=== PATIENT | female | born 1970 | race African-American/Black ===

== ENCOUNTER 2016-04-25 08:29 | Emergency (ER) | payer MEDICAID ==
[~2016-04-25] VITALS: Ht 165.1 cm; Wt 90.0 kg
[~2016-04-25 08:29] MED LIST: FERRF325 PO; FLAG500T PO; LEVO125T3 PO; LISI-366 PO; METO25 PO
[2016-04-25 08:31] VITALS: BP 169/95; PULSE 106; RESP 17; TEMP 99.1; O2SAT 99
[2016-04-25 09:10] LABS: BACTERIA, URINE FEW /hpf; BLOOD, URINE MOD (NEG); COMMENT (UR) CULTURE INDICATED; CULTURE IF INDICATED CULTURE INDICATED; GLUCOSE,URINE NEG (NEG); KETONE, URINE TRACE mg/dL (NEG); MUCUS URINE FEW /lpf (OCC); NITRITE,URINE NEG (NEG); SQUAMOUS EPITHELIAL CELL URINE 71 /hpf (0-5); URINE COLOR YELLOW (YELLW/STRAW)
[2016-04-25] MEDS ORDERED: LIDOCAINE HCL 1% 50 ML VIAL XX ONE (09:30)
[2016-04-25] MEDS ORDERED: CEPH-460 PO (09:31)
--- NOTE | 2016-04-25 09:32 | PD ---
HPI Chief Complaint: Cold / Flu Symptoms Time Seen by Provider: 09:26 Travel History International Travel<30 days: No Contact w/Intl Traveler<30days: No Traveled to known affect area: No History of Present Illness HPI 46-year-old female presents to the emergency department for evaluation of 2 separate issues. First, the patient states she has had urinary symptoms for approximately one week. She reports urinary frequency and urgency and mild dysuria. She reports low back pain. Patient states she has tried over-the- counter homeopathic remedies without improvement. Patient also reports flulike symptoms for 4 days. She reports cough, congestion, low-grade fevers (patient states temp max 99.4) . She denies any abdominal pain. No vomiting. She has a history of hypertension and takes metoprolol. She denies any chance of . No other complaints. PFSH Past Medical History Diminished Hearing: No Sickle Cell Disease: Yes (TRAIT) Tetanus Vaccination: > 5 Years ?: Not LMP: 04/20/16 : 4 Para: 1 Miscarriage: 2 : 0 Past Surgical History Gynecologic Surgery: Yes (D&C) Social History Alcohol Use: Yes (RARELY) Tobacco Use: No Substance Use: No Allergies-Medications (Allergen,Severity, Reaction): Coded Allergies: Codeine (Verified Allergy, Intermediate, NAUSEA, VOMITTING, HIVES, 04/25/16 ) Reported Meds & Prescriptions Reported Meds & Active Scripts Active Flagyl (Metronidazole) 500 Mg Tab 500 Mg PO BID Reported Hemocyte (Ferrous Fumarate) 324 Mg Tab 1 Tab PO BID Lisinopril 40 mg (Lisinopril) 40 Mg Tab 1 Tab PO DAILY Levothyroxine 125 mcg (Levothyroxine Sodium) 125 Mcg Tab 125 Mcg PO DAILY Metoprolol Tartrate 25 mg (Metoprolol Tartrate) 25 Mg Tab 25 Mg PO DAILY Review of Systems Except as stated in HPI: all other systems reviewed are Neg Physical Exam Narrative GENERAL: Well-developed well-nourished female patient, ambulatory. Afebrile. SKIN: Warm and dry. HEAD: Normocephalic. Atraumatic. ENT: Mucosa pink and moist. No erythema or exudates. No uvular edema. No uvular , palatal, or tonsillar deviation. Airway patent. Nasal turbinates appear normal without nasal blood, purulent drainage or septal hematoma. Bilateral tympanic membranes are clear without erythema or perforation. EYES: No scleral icterus. No injection or drainage. NECK: Supple, trachea midline. No JVD or lymphadenopathy. CARDIOVASCULAR: Regular rate and rhythm without murmurs, gallops, or rubs. RESPIRATORY: Breath sounds equal bilaterally. No accessory muscle use. Lungs sounds are clear to auscultation. GASTROINTESTINAL: Abdomen soft, non-tender, nondistended. MUSCULOSKELETAL: No cyanosis, or edema. BACK: Nontender without obvious deformity. No CVA tenderness. Data Data Last Documented VS Vital Signs Date Time Temp Pulse Resp B/P Pulse Ox O2 Delivery O2 Flow Rate FiO2 04/25/16 08:31 99.1 106 17 169/95 99 Orders Urinalysis - C+S If Indicated (04/25/16 08:35) Urine Culture (04/25/16 07:35) Ceftriaxone Inj (Rocephin Inj) (04/25/16 09:30) Labs Laboratory Tests Test 04/25/16 07:35 Urine Color YELLOW Urine Turbidity CLOUDY Urine pH 6.0 Urine Specific [place] 1.016 Urine Protein 30 mg/dL Urine Glucose (UA) NEG mg/dL Urine Ketones TRACE mg/dL Urine Occult Blood MOD Urine Nitrite NEG Urine Bilirubin NEG Urine Urobilinogen LESS THAN 2.0 MG/DL Urine Leukocyte Esterase LARGE Urine RBC 21 /hpf Urine WBC /hpf Urine WBC Clumps FEW Urine Squamous Epithelial 71 /hpf Cells Urine Bacteria FEW /hpf Urine Mucus FEW /lpf Microscopic Urinalysis Comment CULTURE INDICATED MDM Medical Decision Making Medical Screen Exam Complete: Yes Emergency Medical Condition: Yes Medical Record Reviewed: Yes Differential Diagnosis Urinary tract infection versus pyelonephritis versus viral URI versus influenza Narrative Course 46-year-old female presents to the emergency department for evaluation of urinary symptoms for 1 week and cold symptoms for 4 days. Lungs sounds are clear to auscultation. Upper respiratory symptoms are most consistent with a viral URI. Patient has no CVA tenderness however, urine shows moderate occult blood, large leukocyte esterase, 21 RBC, innumerable WBC, few WBC clumps. However, there are 70 squamous epithelial cells. Due to symptoms of UTI and UA results, the patient is treated with Rocephin 1 g IM. She'll be discharged with a prescription for Keflex. Patient is to return for any acute worsening of symptoms. She is agreeable to this plan. Diagnosis Primary Impression: Urinary tract infection Qualified Code: N30.01 - Acute cystitis with hematuria Additional Impression: Viral URI with cough Referrals: Primary Care Physician call for appointment Patient Instructions: General Instructions, Urinary Tract Infection in Women ( ED) Departure Forms: Tests/Procedures, Work Release Enter return to work date: Apr 27, 2016 Additional Instructions: Drink plenty of fluids. Take antibiotic as directed until gone. Follow-up with your primary care physician. Return to the emergency department for any acute worsening of symptoms. Med/Other Pt SpecificInfo: Prescription(s) given Scripts Cephalexin (Keflex)500 Mg [id number] Mg PO Q12H 7 Days Ref 0 Prov:Alexandra Nayak 04/25/16 Disposition: DISCHARGE HOME Condition: Stable Alexandra Nayak Apr 25, 2016 09:32
[2016-06-17] MEDS ORDERED: METO25TA3 PO (09:27)
[2016-06-17] MEDS ORDERED: LEVO125T4 PO (09:27)
== END 2016-04-25 10:17 | disposition home or self-care (01) ==
LOC: NEPB 08:29
DX: N39.0 Urinary tract infection, site not specified (principal); J06.9 Acute upper respiratory infection, unspecified; B96.20 Unspecified Escherichia coli [E. coli] as the cause of diseases classified elsewhere; I10 Essential (primary) hypertension; D57.3 Sickle-cell trait
CPT/HCPCS: 81001; 87077; 87086; 87186; 96372; 99283; J0696

== ENCOUNTER 2017-11-11 20:06 | Observation (INO) ==
[2017-11-11] MEDS ORDERED: Sod Chloride 0.9% Inj 1,000 ML IV.SIG ONE (20:48)
--- NOTE | 2017-11-11 21:03 | ED ---
HPI General Chief Complaint: Headache Stated Complaint: Migraine Time Seen by Provider: 11/11/17 20:38 Source: patient Mode of arrival: ambulatory Limitations: no limitations History of Present Illness HPI Narrative: 47-year-old female that presents to the ED for evaluation of headache. Per patient she does not really suffer from migraine headaches and she has had headaches in the past but not as severe as this 1. Per patient she is dealing with high blood pressure and is following with her doctor who recently increase her metoprolol as well as her losartan. She currently takes 50 mg of metoprolol twice a day as well as losartan 100 mg once a day. Per patient her blood pressure continues to be high and for the past 2 days she has been having severe headache. Per patient comes and goes. She has been trying everything [id number] with no relief. She feels nauseous and has some blurry vision. Per patient the light makes the headache worse. No history of stroke or CVA. No history of ACS. No chest pain or shortness of breath. No urinary or bowel movement issues. No abdominal pain. No kidney disease. She states compliance with her blood pressure medications. Headache per patient is 8 out of 10 and feels like pressure on the back of her neck and head. No trauma or injury. No blood thinner use. No numbness, tingling, weakness. Related Data Home Medications Medication Instructions Recorded Confirmed losartan 100 mg PO DAILY 11/11/17 11/11/17 metoprolol tartrate 50 mg PO BID 11/11/17 11/11/17 Allergies Allergy/AdvReac Type Severity Reaction Status Date / Time codeine Allergy Intermediate NAUSEA, Unverified 10/25/16 17:09 VOMITTING, HIVES Review of Systems ROS: all other systems reviewed are negative PMFSH History History Provided By: Patient Medical History Medical History Hypertension (Acute) Hypothyroid (Acute) Social History Social History Substance History: No History of Abuse Second Hand Smoke Exposure: No Smoking Status: Never smoker How Often Do You Have a Drink Containing Alcohol: Monthly or less Recent Travel in [facility] within the Last 8 Weeks: No Recent Out of Country Travel within the Last 8 Weeks: No Exam Narrative Exam Narrative: GENERAL: Well appearing. SKIN: Focused skin assessment warm/dry. HEAD: Atraumatic. Normocephalic. EYES: Pupils equal and round. No scleral icterus. No injection or drainage. ENT: No nasal bleeding or discharge. Mucous membranes pink and moist. Tongue is midline. No uvula deviation. NECK: Trachea midline. No JVD. CARDIOVASCULAR: Regular rate and rhythm. No murmur appreciated. RESPIRATORY: No accessory muscle use. Clear to auscultation. Breath sounds equal bilaterally. GASTROINTESTINAL: Abdomen soft, non-tender, nondistended. Hepatic and splenic margins not palpable. MUSCULOSKELETAL: No obvious deformities. No clubbing. No cyanosis. No edema. Full range of motion of the upper and lower extremities bilaterally. 2+ pulses bilaterally. NEUROLOGICAL: Awake and alert. No obvious cranial nerve deficits. Motor grossly within normal limits. Normal speech. PSYCHIATRIC: Appropriate mood and affect; insight and judgment normal. Course Initial Documented Vital Signs Temperature 99.6 F 11/11/17 20:30 Pulse Rate 103 H 11/11/17 20:30 Respiratory Rate 20 11/11/17 20:30 Blood Pressure 207/93 H 11/11/17 20:30 Pulse Oximetry 98 11/11/17 20:30 Last Documented Vital Signs Temperature 99.1 F 11/12/17 07:40 Pulse Rate 75 11/12/17 09:42 Respiratory Rate 16 11/12/17 07:40 Blood Pressure 174/81 H 11/12/17 07:41 Pulse Oximetry 99 11/12/17 07:40 Medical Decision Making KEVIN Attestation KEVIN supervised visit: Yes Attestation: I, Dr. Espino, have reviewed the advance practice practitioner's documentation and am in agreement, met with the patient face to face, made the diagnosis, and the medical decision making was done by me. *My assessment and Findings: Patient will be admitted to the hospital for workup and treatment of hypertensive urgency. MDM Narrative Medical decision making narrative: 47-year-old female that presents to the ED for evaluation of hypertension headache. Patient was properly examined and was found to have signs and symptoms concerning for hypertensive urgency. Patient was given labetalol IV at my attendings recommendations. Patient was given a cocktail of medications to help with pain including Benadryl Compazine and Toradol. Labs and imaging order. Labs and imaging still pending when I wrote this note. Case was signed out to my attending Dr. Robertson who will likely admit patient for hypertensive urgency. Medical Screen Exam Complete: Yes Emergency Medical Condition: Yes Differential Diagnosis Differential Diagnosis: CVA versus kidney failure versus hypertensive emergency versus hypertensive urgency versus migraine headache versus tension headache Medical Records Medical records reviewed: Yes I reviewed the patient's medical records. Lab Data Lab results reviewed: Yes I reviewed the patient's lab results. Result diagrams: 11/12/17 04:26 11/12/17 04:26 Lab Results 11/11/17 11/11/17 11/11/17 Range/Units 21:05 21:05 21:05 WBC 8.4 (4.0-11.0) th/mm3 RBC 4.18 (4.00-5.30) mil/mm3 Hgb 12.4 (11.6-15.3) gm/dL Hct 36.8 (35.0-46.0) % MCV 88.1 (80.0-100.0) fL MCH 29.6 (27.0-34.0) pg MCHC 33.6 (32.0-36.0) % RDW 18.7 H (11.6-17.2) % Plt Count 164 (150-450) th/mm3 MPV 9.6 (7.0-11.0) fL Neut % (Auto) 69.2 (16.0-70.0) % Lymph % (Auto) 19.2 (9.0-44.0) % [place] % (Auto) 9.9 H (0.0-8.0) % Eos % (Auto) 1.2 (0.0-4.0) % Baso % (Auto) 0.5 (0.0-2.0) % Neut # (Auto) 5.8 (1.8-7.7) th/mm3 Lymph # (Auto) 1.6 (1.0-4.8) th/mm3 [place] # (Auto) 0.8 (0.0-0.9) th/mm3 Eos # (Auto) 0.1 (0.0-0.4) th/mm3 Baso # (Auto) 0.0 (0.0-0.2) th/mm3 WBC Differential . Differential Comment Auto diff final Sodium 141 (136-145) meq/L Potassium 3.6 (3.5-5.1) meq/L Chloride 109 H (98-107) meq/L Carbon Dioxide 25.1 (21.0-32.0) meq/L Anion Gap 7 (5-15) meq/L BUN 9 (7-18) mg/dL Creatinine 1.13 H (0.50-1.00) mg/dL Estimated GFR 62 L (>89) mL/min Random Glucose 94 (74-106) mg/dL Calcium 8.8 (8.5-10.1) mg/dL Total Bilirubin (0.2-1.0) mg/dL AST (15-37) U/L ALT (10-53) U/L Alkaline Phosphatase (45-117) U/L Total Creatine Kinase 71 (26-192) U/L Troponin I Less than 0.02 L (0.02-0.05) ng/mL Total Protein (6.4-8.2) g/dL Albumin (3.4-5.0) g/dL TSH (0.358-3.740) uIU/mL 11/12/17 11/12/17 Range/Units 04:26 04:26 WBC 7.0 (4.0-11.0) th/mm3 RBC 3.86 L (4.00-5.30) mil/mm3 Hgb 11.5 L (11.6-15.3) gm/dL Hct 34.4 L (35.0-46.0) % MCV 89.2 (80.0-100.0) fL MCH 29.9 (27.0-34.0) pg MCHC 33.5 (32.0-36.0) % RDW 18.9 H (11.6-17.2) % Plt Count 141 L (150-450) th/mm3 MPV 9.9 (7.0-11.0) fL Neut % (Auto) 62.0 (16.0-70.0) % Lymph % (Auto) 25.3 (9.0-44.0) % [place] % (Auto) 10.9 H (0.0-8.0) % Eos % (Auto) 1.4 (0.0-4.0) % Baso % (Auto) 0.4 (0.0-2.0) % Neut # (Auto) 4.3 (1.8-7.7) th/mm3 Lymph # (Auto) 1.8 (1.0-4.8) th/mm3 [place] # (Auto) 0.8 (0.0-0.9) th/mm3 Eos # (Auto) 0.1 (0.0-0.4) th/mm3 Baso # (Auto) 0.0 (0.0-0.2) th/mm3 WBC Differential . Differential Comment Auto diff final Sodium 145 (136-145) meq/L Potassium 3.7 (3.5-5.1) meq/L Chloride 111 H (98-107) meq/L Carbon Dioxide 21.9 (21.0-32.0) meq/L Anion Gap 12 (5-15) meq/L BUN 7 (7-18) mg/dL Creatinine 1.02 H (0.50-1.00) mg/dL Estimated GFR 70 L (>89) mL/min Random Glucose 88 (74-106) mg/dL Calcium 8.1 L (8.5-10.1) mg/dL Total Bilirubin 0.3 (0.2-1.0) mg/dL AST 12 L (15-37) U/L ALT 14 (10-53) U/L Alkaline Phosphatase 61 (45-117) U/L Total Creatine Kinase (26-192) U/L Troponin I (0.02-0.05) ng/mL Total Protein 6.7 (6.4-8.2) g/dL Albumin 3.1 L (3.4-5.0) g/dL TSH 13.000 H (0.358-3.740) uIU/mL Imaging Data Attestation: I personally reviewed and interpreted this imaging study as follows : Radiologist's impression: Head CT 11/11/17 20:48 CONCLUSION: Unremarkable study. . ECG Data EKG Prior to Arrival: No Attestation: I personally reviewed and interpreted this ECG as follows: Interpretation: EKG at 2326: NSR at 81bpm, qt/qtc: 383/420, nonspecific t wave changes Discharge Plan Discharge Disposition Patient Disposition: 30 Still Patient Discharge Condition Condition: Stable Discharge Details Diagnosis: Hypertensive urgency Physicians Team ED Provider: Michelle Espino ED Midlevel Provider: Gibson Baptiste Primary Care Provider: UNKNOWN, Attending Provider: Codey Estrada Other Providers: [facility],Insurance Status ED Status: Left Department Discharge Information Discharge Date/Time: 11/12/17 03:35
[2017-11-11] MEDS ORDERED: Labetalol HCl Inj 100 MG/20 ML Vial IV.PUSH ONE (21:04)
[2017-11-11 21:14] LABS: Baso % (Auto) 0.5 % (0.0-2.0); Eos # (Auto) 0.1 th/mm3 (0.0-0.4); Eos % (Auto) 1.2 % (0.0-4.0); Hematocrit 36.8 % (35.0-46.0); Hemoglobin 12.4 gm/dL (11.6-15.3); Lymph # (Auto) 1.6 th/mm3 (1.0-4.8); Lymph % (Auto) 19.2 % (9.0-44.0); Mean Corpuscular HGB Conc 33.6 % (32.0-36.0); Mean Corpuscular Hemoglobin 29.6 pg (27.0-34.0); Mean Corpuscular Volume 88.1 fL (80.0-100.0); Mean Platelet Volume 9.6 fL (7.0-11.0); Mono # (Auto) 0.8 th/mm3 (0.0-0.9); Mono % (Auto) 9.9 % (0.0-8.0); Neut # (Auto) 5.8 th/mm3 (1.8-7.7); Neut % (Auto) 69.2 % (16.0-70.0); Platelet Count 164 th/mm3 (150-450); Red Blood Count 4.18 mil/mm3 (4.00-5.30); Red Cell Distribution Width 18.7 % (11.6-17.2); White Blood Count 8.4 th/mm3 (4.0-11.0)
[2017-11-11 21:33] LABS: Calcium 8.8 mg/dL (8.5-10.1); Carbon Dioxide 25.1 meq/L (21.0-32.0); Potassium 3.6 meq/L (3.5-5.1)
[2017-11-11 21:50] LABS: Creatine Kinase 71 U/L (26-192)
--- NOTE | 2017-11-11 21:54 | CT ---
EXAM DATE: 11/11/2017 9:46 PM EDT AGE/SEX: 47 years / Female INDICATIONS: Headaches. CLINICAL DATA: This is the patient's initial encounter. Patient reports that signs and symptoms have been present for 1 day and indicates a pain score of 8/10. MEDICAL/SURGICAL HISTORY: Hypertension. None. RADIATION DOSE: 33.67 CTDI (mGy) COMPARISON: No prior exams available for comparison. TECHNIQUE: CT of the head without contrast. Using automated exposure control and adjustment of the mA and/or kV according to patient size, radiation dose was kept as low as reasonably achievable to ob tain optimal diagnostic quality images. DICOM format image data is available electronically for revi ew and comparison. FINDINGS: There is no evidence for intracranial hemorrhage, mass effect, mass lesions, edema, or extra-axial fl uid collections. The visualized bony structures appear intact. The ventricles are normal size for t he patient's age. There are no signs of acute infarction for technique. CONCLUSION: Unremarkable study. . Electronically signed by: Darryl Drake MD 11/11/2017 9:53 PM EDT
[2017-11-11] MEDS ORDERED: Ketorolac Inj 30 MG/ML (IVP) Vial IV.PUSH ONE (22:02)
[2017-11-11] MEDS ORDERED: Sodium Chlor 0.9% Inj 500 ML IV.SIG SCH (23:45)
[2017-11-11] MEDS ORDERED: Bisacodyl 10 MG Supp RECTAL PRN (23:45)
--- NOTE | 2017-11-11 23:46 | P.HPIM ---
History of Present Illness Primary Care Physician: UNKNOWN History of Present Illness: This is a 47-year-old female with a PMH of HTN and Hypothyroidism who presented to the ER with complaints of severe headache and elevated blood pressure. States she's had very difficult to control blood pressure x1 year, follows regularly w/ PCP, recent increase of medications 2wks ago from Metoprolol 25mg bid to 50mg bid and Losartan 50mg qd to 100mg qd, however no significant improvement in blood pressure. Today, pt w/ severe frontal headache, photophobia and nausea. No h/o migraine. On arrival, BP 207/93, HR 103, O2 sat 98% on RA, Temp 99.6. S/p Clonidine 0.1mg PO and Labetalol 10mg IV x1 in ER w/ BP now 173/86. Persistent headache, severe, 10/10, non-radiating. CT Head w/ no acute findings. - Diagnosis (1) HTN (hypertension) (2) Headache (3) Renal insufficiency Review of Systems PAST FAMILY HISTORY: Reviewed. No h/o DM or CAD All other systems reviewed negative except as stated in HPI PMFSH - History History Provided By: Patient - Medical History Medical History: Medical History (Last Reviewed 11/11/17 @ 21:03 by DONALD Son) Hypertension Hypothyroid - Travel History Recent Travel in the [place] Within the Last 8 Weeks: No Recent Travel Out of the Country Within the Last 8 Weeks: No Medications and Allergies Allergies Allergy/AdvReac Type Severity Reaction Status Date / Time codeine Allergy Intermediate NAUSEA, Unverified 10/25/16 17:09 VOMITTING, HIVES Home Medications Medication Instructions Recorded Confirmed Type losartan 100 mg PO DAILY 11/11/17 11/11/17 History metoprolol tartrate 50 mg PO BID 11/11/17 11/11/17 History Exam Vital signs: Vital Signs 11/11/17 20:30 11/11/17 21:16 11/11/17 22:01 Temperature 99.6 F Pulse Rate 103 H 105 H 84 Respiratory Rate 20 20 18 Blood Pressure 207/93 H 192/102 H 173/86 H Pulse Oximetry 98 99 98 Intake & Output 11/11/17 11/11/17 11/12/17 06:59 18:59 06:59 Weight 94.801 kg Narrative: PE: GENERAL: Pleasant young black female, +headache, eyes closed, speaking softly, lights off. Daughter at bedside. SKIN: Focused skin assessment warm and dry. HEENT: PERRLA, EOMI. No scleral icterus or conjunctival pallor. No lid lag or facial droop. CARDIOVASCULAR: Regular rate and rhythm. No obvious murmurs to auscultation. No chest tenderness to palpation. RESPIRATORY: No obvious rhonchi or wheezing. Clear to auscultation. Breath sounds equal bilaterally. GASTROINTESTINAL: Abdomen soft, non-tender, nondistended. BS normal. MUSCULOSKELETAL: Extremities without clubbing, cyanosis, or edema. No obvious deformities. NEUROLOGICAL: Awake, alert and oriented x4. No focal neurologic deficits. Moving both upper and lower extremities spontaneously. PSYCHIATRIC: Appropriate mood and affect. Insight and judgment normal. Results - Labs CBC & Chem 7: 11/11/17 21:05 11/11/17 21:05 Labs: Short CBC 11/11/17 Range/Units 21:05 WBC 8.4 (4.0-11.0) th/mm3 Hgb 12.4 (11.6-15.3) gm/dL Hct 36.8 (35.0-46.0) % Plt Count 164 (150-450) th/mm3 BMP 11/11/17 21:05 Sodium 141 Potassium 3.6 Chloride 109 H Carbon Dioxide 25.1 BUN 9 Creatinine 1.13 H Calcium 8.8 Cardiac Enzymes 11/11/17 Range/Units 21:05 Total Creatine Kinase 71 (26-192) U/L Troponin I Less than 0.02 L (0.02-0.05) ng/mL - Imaging Impressions Head CT 11/11/17 20:48 CONCLUSION: Unremarkable study. . Caprini VTE Risk Assessment Caprini VTE Risk Assessment: No/Low Risk (score <= 1) Caprini Risk Assessment Model: Point Value = 1 Point Value = 2 Point Value = 3 Point Value = 5 Age 41-60 Minor surgery BMI > 25 kg/m2 Swollen legs Varicose veins or History of unexplained or recurrent spontaneous Oral contraceptives or hormone replacement Sepsis (< 1 month) Serious lung disease, including pneumonia (< 1 month) Abnormal pulmonary function Acute myocardial infarction Congestive heart failure (< 1 month) History of inflammatory bowel disease Medical patient at bed rest Age 61-74 Arthroscopic surgery Major open surgery (> 45 min) Laparoscopic surgery (> 45 min) Malignancy Confined to bed (> 72 hours) Immobilizing plaster cast Central venous access Age >= 75 History of VTE Family history of VTE Factor V Leiden Prothrombin [id number] Lupus anticoagulant Anticardiolipin antibodies Elevated serum homocysteine Heparin-induced thrombocytopenia Other congenital or acquired thrombophilia Stroke (< 1 month) Elective arthroplasty Hip, pelvis, or leg fracture Acute spinal cord injury (< 1 month) Prophylaxis Regimen: Total Risk Factor Score Risk Level Prophylaxis Regimen 0-1 Low Early ambulation 2 Moderate Order ONE of the following: *Sequential Compression Device (SCD) *Heparin 5000 units SQ BID 3-4 Higher Order ONE of the following medications: *Heparin 5000 units SQ TID *Enoxaparin/Lovenox 40 mg SQ daily (WT < 150 kg, CrCl > 30 mL/min) *Enoxaparin/Lovenox 30 mg SQ daily (WT < 150 kg, CrCl > 10-29 mL/min) *Enoxaparin/Lovenox 30 mg SQ BID (WT < 150 kg, CrCl > 30 mL/min) AND/OR *Sequential Compression Device (SCD) 5 or more Highest Order ONE of the following medications: *Heparin 5000 units SQ TID (Preferred with Epidurals) *Enoxaparin/Lovenox 40 mg SQ daily (WT < 150 kg, CrCl > 30 mL/min) *Enoxaparin/Lovenox 30 mg SQ daily (WT < 150 kg, CrCl > 10-29 mL/min) *Enoxaparin/Lovenox 30 mg SQ BID (WT < 150 kg, CrCl > 30 mL/min) AND *Sequential Compression Device (SCD) Assessment and Plan - Assessment (1) HTN (hypertension) Code(s): I10 - Essential (primary) hypertension Status: Acute (2) Headache Code(s): R51 - Headache Status: Acute (3) Renal insufficiency Code(s): N28.9 - Disorder of kidney and ureter, unspecified Status: Acute - Plan A/P: 1. HTN: Uncontrolled. h/o uncontrolled BP x1 yr, recent changes to medications by PCP 2wks ago w/ no improvement, BP 207/93, HR 103 on arrival, s/ p Clonidine 0.1mg and Labetalol 10mg IV in ER w/ improvement, BP 173/86, HR 84. Resume home Metoprolol, hold Losartan for renal insufficiency, start Nifedipine. Monitor BP. 2. Headache: +frontal headache, photophobia, nausea, likely secondary to uncontrolled HTN, CT Head w/ no acute findings, optimize BP control, analgesics as needed for headache. 3. Renal Insufficiency: Creatinine 1.13, no previous labs for comparison, IVF for hydration, monitor I/O, repeat labs in am 4. DVT Prophylaxis: SCD/Teds 5. Social work for d/c planning as needed 6. Case discussed w/ ER physician at length, labs/records/imaging reviewed by me
[2017-11-12 05:28] LABS: Baso % (Auto) 0.4 % (0.0-2.0); Eos # (Auto) 0.1 th/mm3 (0.0-0.4); Eos % (Auto) 1.4 % (0.0-4.0); Hematocrit 34.4 % (35.0-46.0); Hemoglobin 11.5 gm/dL (11.6-15.3); Lymph # (Auto) 1.8 th/mm3 (1.0-4.8); Lymph % (Auto) 25.3 % (9.0-44.0); Mean Corpuscular HGB Conc 33.5 % (32.0-36.0); Mean Corpuscular Hemoglobin 29.9 pg (27.0-34.0); Mean Corpuscular Volume 89.2 fL (80.0-100.0); Mean Platelet Volume 9.9 fL (7.0-11.0); Mono # (Auto) 0.8 th/mm3 (0.0-0.9); Mono % (Auto) 10.9 % (0.0-8.0); Neut # (Auto) 4.3 th/mm3 (1.8-7.7); Platelet Count 141 th/mm3 (150-450); Red Blood Count 3.86 mil/mm3 (4.00-5.30); Red Cell Distribution Width 18.9 % (11.6-17.2)
[2017-11-12 05:47] LABS: Albumin 3.1 g/dL (3.4-5.0); Anion Gap 12 meq/L (5-15); Aspartate Aminotransferase 12 U/L (15-37); Calcium 8.1 mg/dL (8.5-10.1); Carbon Dioxide 21.9 meq/L (21.0-32.0); Chloride 111 meq/L (98-107); Glomerular Filtration Rate 70 mL/min (>89); Glucose,Random 88 mg/dL (74-106); Potassium 3.7 meq/L (3.5-5.1); Sodium 145 meq/L (136-145)
[2017-11-12 06:00] LABS: Alanine Aminotransferase 14 U/L (10-53); Alkaline Phosphatase 61 U/L (45-117); Blood Urea Nitrogen 7 mg/dL (7-18); Total Protein 6.7 g/dL (6.4-8.2)
[2017-11-12] MEDS: hydrALAZINE 25 MG Tablet PO SCH ×2 (08:02→21:13)
[2017-11-12] MEDS: Acetaminophen 325 MG Tablet PO PRN ×3 (08:03→21:13)
[2017-11-12] MEDS: Senna/Docusate Sodium 8.6/50 MG Tablet PO SCH ×2 (08:03→21:14)
[2017-11-12] MEDS ORDERED: Metoprolol Tartrate 50 MG Tablet PO SCH (09:00)
--- NOTE | 2017-11-12 09:44 | P.PN ---
Subjective Interval history: Follow-up visit accelerated hypertension, obese. Patient seen and examined today. Reports he continues to have headaches but is a little bit better compared to yesterday. Patient blood pressure is improving but still not at goal for now. Encourage p.o. fluid hydration. Denies pain and discomfort. Denies SOB/ dyspnea. Denies chest pain, palpitations, dizziness. Denies fevers , chills, n/v/d. Denies dysuria. Physical Exam Vital signs: Vital Signs 11/11/17 20:30 11/11/17 21:16 11/11/17 22:01 Temperature 99.6 F Pulse Rate 103 H 105 H 84 Respiratory Rate 20 20 18 Blood Pressure 207/93 H 192/102 H 173/86 H Pulse Oximetry 98 99 98 11/12/17 02:40 11/12/17 02:41 11/12/17 03:49 Temperature 97.7 F Pulse Rate 76 79 Respiratory Rate 18 18 18 Blood Pressure 163/93 H 137/65 Pulse Oximetry 99 98 11/12/17 04:10 11/12/17 07:40 11/12/17 07:41 Temperature 99.1 F Pulse Rate 72 83 84 Respiratory Rate 16 Blood Pressure 196/85 H 174/81 H Pulse Oximetry 99 11/12/17 09:42 Temperature Pulse Rate 75 Respiratory Rate Blood Pressure Pulse Oximetry Intake & Output 11/11/17 11/12/17 11/12/17 18:59 06:59 18:59 Intake Total 1000 / 1000 Balance 1000 / 1000 Weight 94.801 kg Intake: IV 1000 / 1000 Other: Date of Last Bowel Movement 11/11/17 Narrative: GENERAL: This is an obese, well-developed patient, in no apparent distress. SKIN: Warm and dry HEENT: Normocephalic. Pupils equal round and reactive. Nose without bleeding. Airway patent. NECK: Trachea midline. Supple. CARDIOVASCULAR: Regular rate and rhythm without murmurs, gallops, or rubs. RESPIRATORY: Clear to auscultation. Breath sounds equal bilaterally. No wheezes , rales, or rhonchi. GASTROINTESTINAL: Abdomen soft, non-tender, nondistended. Bowel Sounds normoactive x4. MUSCULOSKELETAL: Extremities without clubbing, cyanosis, or edema. NEUROLOGICAL: Awake and alert. Oriented to time, place, person. No focal neuro deficit. Moves all extremities. Normal speech. Results - Labs CBC & Chem 7: 11/12/17 04:26 11/12/17 04:26 Laboratory Results - last 24 hr 11/11/17 11/11/17 11/11/17 21:05 21:05 21:05 WBC 8.4 RBC 4.18 Hgb 12.4 Hct 36.8 MCV 88.1 MCH 29.6 MCHC 33.6 RDW 18.7 H Plt Count 164 MPV 9.6 Neut % (Auto) 69.2 Lymph % (Auto) 19.2 Cook % (Auto) 9.9 H Eos % (Auto) 1.2 Baso % (Auto) 0.5 Neut # (Auto) 5.8 Lymph # (Auto) 1.6 Cook # (Auto) 0.8 Eos # (Auto) 0.1 Baso # (Auto) 0.0 WBC Differential . Differential Comment Auto diff final Sodium 141 Potassium 3.6 Chloride 109 H Carbon Dioxide 25.1 Anion Gap 7 BUN 9 Creatinine 1.13 H Estimated GFR 62 L Random Glucose 94 Calcium 8.8 Total Bilirubin AST ALT Alkaline Phosphatase Total Creatine Kinase 71 Troponin I Less than 0.02 L Total Protein Albumin TSH 11/12/17 11/12/17 04:26 04:26 WBC 7.0 RBC 3.86 L Hgb 11.5 L Hct 34.4 L MCV 89.2 MCH 29.9 MCHC 33.5 RDW 18.9 H Plt Count 141 L MPV 9.9 Neut % (Auto) 62.0 Lymph % (Auto) 25.3 Cook % (Auto) 10.9 H Eos % (Auto) 1.4 Baso % (Auto) 0.4 Neut # (Auto) 4.3 Lymph # (Auto) 1.8 Cook # (Auto) 0.8 Eos # (Auto) 0.1 Baso # (Auto) 0.0 WBC Differential . Differential Comment Auto diff final Sodium 145 Potassium 3.7 Chloride 111 H Carbon Dioxide 21.9 Anion Gap 12 BUN 7 Creatinine 1.02 H Estimated GFR 70 L Random Glucose 88 Calcium 8.1 L Total Bilirubin 0.3 AST 12 L ALT 14 Alkaline Phosphatase 61 Total Creatine Kinase Troponin I Total Protein 6.7 Albumin 3.1 L TSH 13.000 H - Imaging Impressions Head CT 11/11/17 20:48 CONCLUSION: Unremarkable study. . Assessment and Plan - Assessment (1) HTN (hypertension) Code(s): I10 - Essential (primary) hypertension Status: Acute (2) Headache Code(s): R51 - Headache Status: Acute (3) Renal insufficiency Code(s): N28.9 - Disorder of kidney and ureter, unspecified Status: Acute - Plan 47-year-old female with a PMH of HTN and Hypothyroidism who presented to the ER with complaints of severe headache and elevated blood pressure. HTN: Uncontrolled. h/o uncontrolled BP x1 yr, recent changes to medications by PCP 2wks ago w/ no improvement -BP 207/93, HR 103 on arrival, s/p Clonidine 0.1mg and Labetalol 10mg IV in ER w/ improvement -Resume home Metoprolol, hold Losartan for renal insufficiency, started on Nifedipine -Add hydralazine BID -Monitor BP trend Headache: +frontal headache, photophobia, nausea, likely secondary to uncontrolled HTN -CT Head w/ no acute findings -optimize BP control -analgesics as needed for headache. Renal Insufficiency: Creatinine 1.13, no previous labs for comparison -Possibly secondary to hypertensive nephropathy -IVF for hydration -Encourage p.o. fluid hydration -Monitor I/O, repeat labs in am DVT Prophylaxis: SCD/Teds Code Status: Full code Discussed Condition With: Patient, nursing Discharge Planning: Plan to DC home when clinically improved
[2017-11-12] MEDS: Sodium Chloride 0.45 % Inj 1,000 ML IV.CONT SCH (15:35)
--- NOTE | 2017-11-12 15:43 | ECG ---
Date Performed: 11/11/2017 Time Performed: 23:26:06 PTAGE: 47 years EKG: Sinus rhythm WITHIN NORMAL LIMITS BORDERLINE ECG NO PREVIOUS TRACING DOCTOR: Onofre Godwin Interpretating Date/Time 11/12/2017 15:41:51
[2017-11-12] MEDS: Metoprolol Tartrate 50 MG Tablet PO SCH (18:42)
[2017-11-12 23:36] VITALS: O2SAT 98
[2017-11-13] MEDS: Acetaminophen 325 MG Tablet PO PRN (04:08)
[2017-11-13] MEDS: Sodium Chloride 0.45 % Inj 1,000 ML IV.CONT SCH (04:23)
[2017-11-13 06:52] LABS: Calcium 8.6 mg/dL (8.5-10.1); Carbon Dioxide 24.6 meq/L (21.0-32.0); Potassium 3.8 meq/L (3.5-5.1)
[2017-11-13 08:58] VITALS: BP 130/69; RESP 16; TEMP 98.6
--- NOTE | 2017-11-13 09:02 | P.DS ---
<Britney Dumont - Last Filed: 11/13/17 09:05> Date of admission: 11/12/17 01:25 Primary care physician: UNKNOWN Attending physician on discharge: Codey Estrada Anticipated date of discharge: 11/13/17 Brief History from admission: This is a 47-year-old female with a PMH of HTN and Hypothyroidism who presented to the ER with complaints of severe headache and elevated blood pressure. States she's had very difficult to control blood pressure x1 year, follows regularly w/ PCP, recent increase of medications 2wks ago from Metoprolol 25mg bid to 50mg bid and Losartan 50mg qd to 100mg qd, however no significant improvement in blood pressure. Today, pt w/ severe frontal headache, photophobia and nausea. No h/o migraine. On arrival, BP 207/93, HR 103, O2 sat 98% on RA, Temp 99.6. S/p Clonidine 0.1mg PO and Labetalol 10mg IV x1 in ER w/ BP now 173/86. Persistent headache, severe, /, non-radiating. CT Head w/ no acute findings. Patient update on day of discharge: Follow-up visit visit uncontrolled hypertension, obesity. Patient seen and examined today. Reports she is doing a lot better. Discussed with patient results of blood pressure trending, BP has significantly improved. Discuss results of labs. Patient is very thankful and happy. Denies pain and discomfort. Denies SOB/ dyspnea. Denies chest pain, palpitations, headaches, dizziness. Denies fevers, chills, n/v/d. Denies hematuria, dysuria. DS: Diagnosis - Discharge Diagnosis (1) HTN (hypertension) Status: Acute (2) Headache Status: Acute (3) Renal insufficiency Status: Acute DS: Medications - Discharge Medications Prescriptions: metoprolol tartrate 75 mg PO BID #60 tab nifedipine 30 mg PO DAILY #30 tab DS: Summary Hospital Course: 47-year-old female with a PMH of HTN and Hypothyroidism who presented to the ER with complaints of severe headache and elevated blood pressure. Patient's blood pressure has been uncontrolled. Initial blood pressure was 207/93, heart rate of 103. She was given clonidine 0.1 mg, labetalol 10 mg IV in the ED with some improvement. Adjustments of her home medications has been done. Losartan was held secondary to acute kidney injury. Patient's creatinine when she came in was 1.13 with no previous labs to compare. IV fluid hydration was provided for the patient with encouragement of p.o. fluid hydration. Patient's blood pressure significantly improve. She will go home with metoprolol adjusted dose to 75 mg twice daily, nifedipine 30 mg daily, her renal function is significantly improved and she could continue her losartan 100 mg daily. This has been discussed extensively with the patient. Verbalized understanding. Patient has met maximal benefits of hospitalization. Clinically stable for discharge. Follow-up with PCP P - Time Spent with Patient Total time spent providing and/or coordinating discharge services: Less than 30 minutes - Quality: VTE Deep Vein Thrombosis/Pulmonary Embolism Present on Admission: No Exam Vital signs: Vital Signs 11/12/17 09:42 11/12/17 12:56 11/12/17 17:01 Temperature 98.7 F 98.6 F Pulse Rate 75 67 68 Respiratory Rate 18 16 Blood Pressure 168/95 H 179/99 H Pulse Oximetry 100 100 11/12/17 19:47 11/12/17 23:35 11/13/17 03:41 Temperature 98.5 F 98.3 F 98.9 F Pulse Rate 72 71 68 Respiratory Rate 16 16 17 Blood Pressure 138/77 123/60 127/74 Pulse Oximetry 99 98 98 11/13/17 08:00 Temperature 98.6 F Pulse Rate 69 Respiratory Rate 16 Blood Pressure 130/69 Pulse Oximetry 98 Intake & Output 11/12/17 11/13/17 11/13/17 18:59 06:59 18:59 Intake Total 1000 / 1000 Balance 1000 / 1000 Weight 94.801 kg Intake: IV 1000 / 1000 1/2 Normal Saline Inj 1,000 ML 1000 / 1000 @ 100 mls/hr IV.CONT .Q10H AUDRA Rx#:[id number] Other: # Voids 3 Date of Last Bowel Movement 11/11/17 Weight On Admission 94.801 kg Narrative: GENERAL: This is an obese, well-developed patient, in no apparent distress. SKIN: Warm and dry HEENT: Normocephalic. Pupils equal round and reactive. Nose without bleeding. Airway patent. NECK: Trachea midline. Supple. CARDIOVASCULAR: Regular rate and rhythm without murmurs, gallops, or rubs. RESPIRATORY: Clear to auscultation. Breath sounds equal bilaterally. No wheezes , rales, or rhonchi. GASTROINTESTINAL: Abdomen soft, non-tender, nondistended. Bowel Sounds normoactive x4. MUSCULOSKELETAL: Extremities without clubbing, cyanosis, or edema. NEUROLOGICAL: Awake and alert. Oriented to time, place, person. No focal neuro deficit. Moves all extremities. Normal speech. Results Procedures completed during hospitalization: None Labs on day of discharge: Labs from last 24 hours 11/13/17 11/12/17 06:06 04:26 Sodium 141 Potassium 3.8 Chloride 108 H Carbon Dioxide 24.6 Anion Gap 8 BUN 10 Creatinine 0.90 Estimated GFR 81 L Random Glucose 97 Calcium 8.6 Free T4 0.76 - Impressions ITS Impressions Head CT 11/11/17 20:48 CONCLUSION: Unremarkable study. . <Codey Estrada - Last Filed: 01/01/18 13:55> Date of admission: 11/12/17 01:25 Primary care physician: UNKNOWN DS: Summary - Time Spent with Patient Total time spent providing and/or coordinating discharge services: Results - Impressions ITS Impressions Head CT 11/11/17 20:48 CONCLUSION: Unremarkable study. . Discharge Plan - Discharge Order Discharge Orders: Discharge Order (Routine); Ordered 11/13/17 Ordered By: Britney Dumont - Physicians Team Primary Care Provider: UNKNOWN, Attending Provider: Codey Estrada Other Providers: JRD Communication,Insurance
[2017-11-13] MEDS: Metoprolol Tartrate 50 MG Tablet PO SCH (09:13)
[2017-11-13] MEDS: Senna/Docusate Sodium 8.6/50 MG Tablet PO SCH (09:14)
[2017-11-13] MEDS: hydrALAZINE 25 MG Tablet PO SCH (09:14)
[2017-11-13 09:47] VITALS: PULSE 61
== END 2017-11-13 09:47 | disposition home or self-care (01) ==
LOC: NEDA 20:06 → NEPC 20:06 → NEPFCDU 11-12 03:24
PROVIDERS: ADMIT Hospitalist; ATTEND Hospitalist
DX: G43.909 Migraine, unspecified, not intractable, without status migrainosus; Z88.5 Allergy status to narcotic agent; N17.9 Acute kidney failure, unspecified; R94.31 Abnormal electrocardiogram [ECG] [EKG]; Z79.899 Other long term (current) drug therapy; E66.9 Obesity, unspecified; Z68.34 Body mass index [BMI] 34.0-34.9, adult; E03.9 Hypothyroidism, unspecified; I16.0 Hypertensive urgency; I10 Essential (primary) hypertension